=== PATIENT | female | born 1965 | race Caucasian/White ===

== ENCOUNTER → 2025-01-09 14:41 | Outpatient (REF) | payer OTHER, SELFPAY | LOC: HWWDC 14:41 | PROVIDERS: ATTENDING PHYSICIAN Nurse Practitioner Women's Health; FAMILY PHYSICIAN Internal Medicine | DX: Z12.31 Encounter for screening mammogram for malignant neoplasm of breast (principal) | CPT/HCPCS: 77063; 77067 ==

== ENCOUNTER 2025-04-25 08:16 | Day surgery (SDC) | payer OTHER, SELFPAY ==
[2025-04-25] VITALS (8 sets, daily range): BP systolic 108–132; BP diastolic 68–84; BMI 30.2
[2025-04-25] MEDS: NORMOSOL-R/PLASMALYTE-A 1000 IV (08:33)
[2025-04-25 10:10] LABS: ALT (SGPT) 23 U/L (0-35); AST (SGOT) 26 U/L (14-36); Albumin 4.2 g/dl (3.5-5.0); Alkaline Phosphatase 70 U/L (38-126); Blood Urea Nitrogen 14 mg/dl (7-17); Calcium 9.0 mg/dl (8.4-10.2); Carbon Dioxide 29 mmol/L (22-30); Chloride 104 mmol/L (98-107); Estimated Creatinine Clearance 68 ml/min; Glucose 107 mg/dl (70-99); Potassium 4.6 mmol/L (3.5-5.1); Sodium 138 mmol/L (135-145); Total Protein 6.8 g/dl (6.3-8.2); eGFR > 60.00
== END 2025-04-25 14:20 | disposition home or self-care (01) ==
LOC: SDS 08:16
PROVIDERS: ATTENDING PHYSICIAN Orthopaedic Surgery
DX: S64.8X2A Injury of other nerves at wrist and hand level of left arm, initial encounter (principal); S61.452A Open bite of left hand, initial encounter; W54.0XXA Bitten by dog, initial encounter
CPT/HCPCS: 11043; 80053; 93005